=== PATIENT | female | born 1965 | race Caucasian/White ===

== ENCOUNTER → 2019-04-26 | Outpatient (CLI) | payer BC, OTHER ==
[~2019-04-26] MED LIST: ATEN25TA PO; ESOM40CA PO; METH40TA3 PO; MULT-516 PO
[2019-04-26 09:07] LABS: BASOPHILS # (AUTO) 0.04 x10^3/uL (0-0.1); BASOPHILS % (AUTO) 1 % (0-1); EOSINOPHILS # (AUTO) 0.17 x10^3/uL (0-0.4); EOSINOPHILS % (AUTO) 3 % (1-7); LYMPHOCYTES # (AUTO) 2.17 x10^3/uL (1-3.4); LYMPHOCYTES % (AUTO) 43 % (22-44); MD NO; MEAN CORPUSCULAR HEMOGLOBIN 29.5 pg (27.0-34.8); MEAN CORPUSCULAR HGB CONC 32.4 g/dL (32.4-35.8); MEAN PLATELET VOLUME 7.5 fL (7.4-10.4); MONOCYTES # (AUTO) 0.38 x10^3/uL (0.2-0.8); MONOCYTES % (AUTO) 8 % (2-9); NEUTROPHILS # (AUTO) 2.28 x10^3/uL (1.8-6.8); NEUTROPHILS % (AUTO) 45 % (42-75); PLATELET COUNT 184 x10^3/uL (130-400); RED BLOOD COUNT 4.03 x10^6/uL (3.82-5.3); RED CELL DISTRIBUTION WIDTH 14.1 % (9.6-15.2)
[2019-04-26 09:18] LABS: ALBUMIN 3.4 g/dL (3.4-5.0); CALCIUM 8.6 mg/dL (8.5-10.1); CREATININE 0.68 mg/dL (0.55-1.02)
[2019-04-26 09:24] LABS: ALANINE AMINOTRANSFERASE 23 U/L (12-78); ALKALINE PHOSPHATASE 42 U/L (45-117); BILIRUBIN,TOTAL 0.4 mg/dL (0.2-1.0); TOTAL PROTEIN 6.2 g/dL (6.4-8.2)
[2019-04-26 09:27] LABS: ANION GAP 4 mmol/L (5-15); CHLORIDE 109 mmol/L (98-107)
== END | disposition home or self-care (01) ==
LOC: STAR 08:04
PROVIDERS: ATTEND Orthopaedic Surgery
DX: Z01.818 Encounter for other preprocedural examination (principal); M17.12 Unilateral primary osteoarthritis, left knee
CPT/HCPCS: 36415; 80053; 85025; 87081

== ENCOUNTER 2019-05-08 05:27 | Observation (INO) | payer BC, OTHER ==
[~2019-05-08] VITALS: Ht 167.6 cm; Wt 81.2 kg
[2019-05-08] MEDS ORDERED: LACTATED RINGERS 1,000 ML IV SCH (06:12)
[2019-05-08] MEDS ORDERED: KETOROLAC 60 MG/2 ML ONE (06:17)
[2019-05-08] MEDS ORDERED: TRANEXAMIC ACID 100 MG/ML, 10ML ONE (06:17)
[2019-05-08] MEDS ORDERED: SODIUM CHLORIDE 0.9% 50 ML ONE (06:18)
[2019-05-08] MEDS ORDERED: VANCOMYCIN 1,000 MG ONE (06:18)
[2019-05-08] MEDS ORDERED: ROPIvacaine/PF 0.2%, 20 ML ONE (06:18)
[2019-05-08] MEDS ORDERED: EPINEPHRINE 1 MG/ML, 1ML ONE (06:18)
[2019-05-08 06:20] VITALS: BP 153/78
[2019-05-08] MEDS ORDERED: MIDAZOLAM 1 MG/ML, 2ML ONE ×2 (06:47→09:28)
[2019-05-08] MEDS ORDERED: FENTANYL PF 250 MCG/5ML ONE ×2 (06:48→08:09)
[2019-05-08] MEDS ORDERED: OxyconTIN ER 20 MG TAB.ER PO ONE (07:00)
[2019-05-08] MEDS ORDERED: DIAZEPAM 5 MG TABLET PO ONE (07:00)
[2019-05-08] MEDS ORDERED: SCOPOLAMINE PATCH, 1.5MG PATCH.TD72 TD ONE (07:00)
[2019-05-08] MEDS ORDERED: GABAPENTIN 300 MG CAPSULE PO ONE (07:00)
[2019-05-08] MEDS ORDERED: ACETAMINOPHEN 500 MG TABLET PO ONE (07:00)
[2019-05-08 07:14] LABS: AMPHETAMINE SCREEN, URINE Negative (Negative); BARBITURATE SCREEN, URINE Negative (Negative); BENZODIAZEPINE SCREEN, URINE Negative (Negative); CANNABINOID SCREEN, URINE Negative (Negative); COCAINE SCREEN, URINE Negative (Negative); METHADONE SCREEN, URINE Positive (Negative); OPIATE SCREEN, URINE Negative (Negative)
[2019-05-08 07:22] LABS: HCG UR SG 1.009 (1.003-1.030); MICROSCOPIC AUTO
[2019-05-08 07:30] LABS: CULTURE INDICATED? YES
[2019-05-08] MEDS ORDERED: KETAMINE 50 MG/ML, 10ML ONE (07:43)
[2019-05-08] MEDS ORDERED: hydrALAzine 20 MG/ML, 1ML ONE (07:48)
[2019-05-08] MEDS ORDERED: hydrALAzine 20 MG/ML, 1ML IV PRN (08:00)
[2019-05-08] MEDS ORDERED: MEPERIDINE/PF 25MG/0.5ML IVPush PRN (08:00)
[2019-05-08] MEDS ORDERED: ONDANSETRON 2MG/ML, 2ML IV PRN ×2 (08:00→09:00)
[2019-05-08] MEDS ORDERED: PROMETHAZINE 25 MG/ML, 1ML IV PRN (08:00)
[2019-05-08] MEDS ORDERED: ALBUTEROL/IPRATROPIUM 2.5MG/0.5MG, 3 ML NPPB PRN (08:00)
[2019-05-08] MEDS ORDERED: METOPROLOL 1 MG/ML, 5ML IV PRN (08:00)
[2019-05-08] MEDS ORDERED: DIAZEPAM 5 MG/ML, 2ML IVPush PRN (08:00)
[2019-05-08] MEDS ORDERED: MIDAZOLAM 1 MG/ML, 2ML IV PRN (08:00)
[2019-05-08] MEDS ORDERED: OXYcodone 5 MG/5 ML ORAL.SOL UDC PO PRN (08:00)
[2019-05-08] MEDS ORDERED: BUPIVACAINE/PF 0.25% ONE (08:07)
[2019-05-08] MEDS ORDERED: LIDOCAINE-MPF 2% ,5ML ONE ×2 (08:07→08:08)
[2019-05-08] MEDS ORDERED: CEFAZOLIN 1,000 MG ONE (08:08)
[2019-05-08] MEDS ORDERED: ONDANSETRON 2MG/ML, 2ML ONE (08:08)
[2019-05-08] MEDS ORDERED: PROPOFOL 10 MG/ML, 20ML ONE (08:08)
[2019-05-08] MEDS ORDERED: DEXAMETHASONE 4 MG/ML, 1ML ONE (08:08)
[2019-05-08] MEDS ORDERED: D5%-0.45% NACL 1,000 ML IV SCH (08:45)
[2019-05-08] MEDS ORDERED: OXYcodone 5 MG/5 ML ORAL.SOL UDC ONE (08:52)
[2019-05-08] MEDS ORDERED: HYDROmorphone 2 MG/ML, 1ML ONE ×2 (08:52→09:22)
[2019-05-08] MEDS ORDERED: FENTANYL PF 100 MCG/2ML ONE ×2 (08:52→09:22)
[2019-05-08] MEDS: FENTANYL PF 100 MCG/2ML IV PRN ×3 (08:55→09:20)
[2019-05-08] MEDS ORDERED: PANTOPROZOLE 40MG TABLET PO SCH (09:00)
[2019-05-08] MEDS ORDERED: ZOLPIDEM 5MG TABLET PO PRN (09:00)
[2019-05-08] MEDS ORDERED: MULTIVITAMINS/MINERALS TABLET PO SCH (09:00)
[2019-05-08] MEDS ORDERED: PROMETHAZINE 25 MG/ML, 1ML IM PRN (09:00)
[2019-05-08] MEDS ORDERED: OXYcodone IR 5MG TABLET PO PRN (09:00)
[2019-05-08] MEDS ORDERED: PROMETHAZINE 12.5 MG SUPP PR PRN (09:00)
[2019-05-08] MEDS ORDERED: POLYETHYLENE GLYCOL 17 GM PACKET PO PRN (09:00)
[2019-05-08] MEDS ORDERED: HYDROmorphone 2 MG/ML, 1ML IVPush PRN (09:00)
[2019-05-08] MEDS ORDERED: SCOPOLAMINE PATCH, 1.5MG PATCH.TD72 TD SCH (09:00)
[2019-05-08] MEDS ORDERED: BISACODYL 10 MG SUPP PR PRN (09:00)
[2019-05-08] MEDS: HYDROmorphone 2 MG/ML, 1ML IVPush PRN ×5 (09:00→09:25)
[2019-05-08] MEDS ORDERED: ONDANSETRON 4 MG TABLET PO PRN (09:00)
[2019-05-08] MEDS ORDERED: SENNA/DOCUSATE TABLET PO PRN (09:00)
[2019-05-08] MEDS ORDERED: DIPHENHYDRAMINE 25 MG CAPSULE PO PRN (09:00)
[2019-05-08] MEDS ORDERED: FERROUS SULFATE 325 MG TABLET PO SCH (09:00)
[2019-05-08] MEDS ORDERED: PSYLLIUM PACKET PO PRN (09:00)
[2019-05-08] MEDS ORDERED: MAGNESIUM HYDROXIDE 8%, 30ML UDC PO PRN (09:00)
[2019-05-08] MEDS ORDERED: ALUMINUM/MAG/SIMETHICONE 30 ML UDC PO PRN (09:00)
[2019-05-08] MEDS ORDERED: DOCUSATE 100 MG CAPSULE PO SCH (09:00)
[2019-05-08] MEDS ORDERED: DIAZEPAM 5 MG TABLET PO PRN (09:00)
[2019-05-08] MEDS ORDERED: TRANEXAMIC ACID 1,000 MG in SODIUM CHLORIDE 0.9% 100 ML IVPB ONE (09:15)
[2019-05-08] MEDS ORDERED: ATENOLOL 25 MG TABLET PO SCH (10:15)
[2019-05-08] MEDS ORDERED: METHADONE INTENSOL 10 MG/ML ORAL CONC PO SCH (10:16)
[2019-05-08 10:30] VITALS: BP 113/57
[2019-05-08] MEDS ORDERED: ACETAMINOPHEN 500 MG TABLET PO SCH (11:00)
[2019-05-08] MEDS ORDERED: ASCORBIC ACID 500 MG TABLET PO SCH (11:00)
[2019-05-08] MEDS ORDERED: CALCIUM/VITAMIN D3 250-125 TABLET PO SCH (12:00)
[2019-05-08] MEDS ORDERED: KETOROLAC 30 MG/1 ML IV SCH ×2 (12:00→15:00)
[2019-05-08 13:10] VITALS: BP 111/66
[2019-05-08] MEDS ORDERED: CEFAZOLIN PMX 1GM/50ML 50 ML IVPB SCH (14:30)
[2019-05-08 16:00] VITALS: BP 125/57
[2019-05-08] MEDS ORDERED: OXYC5TAB2 PO (16:21)
[2019-05-08] MEDS ORDERED: ASPIRIN 81 MG TABLET EC PO SCH (18:00)
[2019-05-09] MEDS ORDERED: DEXAMETHASONE 4 MG/ML, 1ML IVPush ONE (06:00)
== END 2019-05-08 17:00 | disposition home or self-care (01) ==
LOC: OR 05:27 → 4NOR 10:10 → OR 10:39 → 4NOR 10:39 → DCLOUNGE 16:40
PROVIDERS: ADMIT Orthopaedic Surgery; ATTEND Orthopaedic Surgery
DX: M17.12 Unilateral primary osteoarthritis, left knee (principal); M81.0 Age-related osteoporosis without current pathological fracture; D64.9 Anemia, unspecified; Z88.0 Allergy status to penicillin; Z88.2 Allergy status to sulfonamides; Z88.5 Allergy status to narcotic agent; Z88.8 Allergy status to other drugs, medicaments and biological substances; Z79.899 Other long term (current) drug therapy; Z87.891 Personal history of nicotine dependence
CPT/HCPCS: 27447; 73560; 80307; 81001; 81025; 87086; 96365; 96375; 97116; 97161; 97530; C1713; C1776; G0378; J0171; J0360; J0690; J1100; J1170; J1885; J2250; J2405; J2704; J2795; J3010; J3490; J7120; J3370